=== PATIENT | female | born 1980 | race Caucasian/White ===

== ENCOUNTER 2021-10-23 21:47 | Emergency (ER) | payer MEDICAID, SELFPAY ==
[2021-10-23 22:22] LABS: #Eosinphils 0.4 thou/uL (0.0-0.7); #Lymphocytes 1.9 thou/uL (1.20-3.40); #Monocytes 0.7 thou/uL (0.11-0.59); #Neutrophils 6.2 thou/uL (1.40-6.50); %Basophils 0.4 % (0.0-1.0); %Eosinophils 4.4 % (0.0-10.0); %Lymphocytes 20.6 % (21.0-51.0); %Monocytes 7.6 % (0.0-10.0); Hemoglobin 12.3 g/dL (12.0-16.0); Mean Corpuscular HGB CONC 33.3 g/dL (32.0-36.0); Mean Corpuscular Hemoglobin 31.9 pg (27.0-31.0); Mean Corpuscular Volume 95.8 fL (78.0-98.0); Mean Platelet Volume 8.6 fL (7.4-10.4); Platelet Count 169 thou/uL (130-400); RBC Distribution Width 13.6 % (11.5-14.5); Red Blood Cell (RBC) Count 3.87 mill/uL (4.20-5.40); White Blood Cell (WBC) Count 9.2 thou/uL (4.8-10.8)
[2021-10-23 22:27] LABS: Bilirubin Negative (Negative); Blood, Urine Negative (Negative); Clarity Turbid (Clear); Glucose, Urine (Dipstick) Normal (Negative); Ketone, Urine Negative (Negative); Leukocyte Negative Leu/uL (Negative); Nitrite Negative (Negative); Protein, Urine (Dipstick) Negative (Neg-Trace); Specific Gravity, Urine 1.023 (1.002-1.036); Urobilinogen Normal mg/dL (Less than 2); pH, Urine 6.5 (5.0-9.0)
[2021-10-23 22:31] LABS: Pregnancy Test - Urine (BHCG) Negative (Negative); Specific Gravity 1.023 (1.002-1.036)
[2021-10-23 22:32] LABS: Pregu Control Background? CLEAR/WHITE (CLR/WHITE); Pregu Control Bar Appear? YES (CONTROL BAR)
[2021-10-23 22:42] LABS: ALT (SGPT) 10 U/L (8-55); AST (SGOT) 16 U/L (5-34); Alkaline Phosphatase 82 U/L (40-110); Anion Gap 13 mmol/L (10-20); BUN (Urea Nitrogen) 12 mg/dL (7.0-18.7); Bilirubin, Total Less than 0.2 mg/dL (0.2-1.2); Calc. Creatinine Clearance 0 mL/min (70-130); Calcium 8.4 mg/dL (7.8-10.44); Carbon Dioxide 19 mmol/L (22-29); Chloride 110 mmol/L (98-107); Globulin 2.6 g/dL (2.4-3.5); Glucose 89 mg/dL (70-105); Lipase 62 U/L (8-78); Potassium 3.5 mmol/L (3.5-5.1); Protein, Total 6.6 g/dL (6.0-8.3); Sodium 138 mmol/L (136-145)
[2021-10-24] MEDS ORDERED: Ketorolac Tromethamine 30 MG/ML VIAL ONE (00:08)
[2021-10-24] MEDS ORDERED: Cyclobenzaprine 10 MG TAB ONE (02:28)
[2021-10-24] MEDS ORDERED: Acetaminophen 500 MG TAB ONE (02:28)
== END 2021-10-24 03:18 | disposition home or self-care (01) ==
LOC: ERS 21:47
DX: R10.11 Right upper quadrant pain (principal); F17.210 Nicotine dependence, cigarettes, uncomplicated
CPT/HCPCS: 36415; 76705; 80053; 81003; 81025; 83690; 85025; 96372; J1885

== ENCOUNTER 2022-02-16 08:02 | Inpatient (IN) | payer SELFPAY ==
[2022-02-16 08:37] LABS: BHCG - Serum Negative (NEGATIVE); Pregs Control Background? CLEAR/WHITE (CLR/WHITE); Pregs Control Bar Appear? YES (CONTROL BAR)
[2022-02-16 08:50] LABS: ALT (SGPT) 7 U/L (8-55); AST (SGOT) 21 U/L (5-34); Albumin 3.8 g/dL (3.5-5.0); Alkaline Phosphatase 92 U/L (40-110); Anion Gap 16 mmol/L (10-20); BUN (Urea Nitrogen) 7 mg/dL (7.0-18.7); Bilirubin, Total 0.4 mg/dL (0.2-1.2); Calc. Creatinine Clearance 0 mL/min (70-130); Calcium 8.7 mg/dL (7.8-10.44); Carbon Dioxide 15 mmol/L (22-29); Chloride 108 mmol/L (98-107); Estimated GFR 99; Globulin 3.1 g/dL (2.4-3.5); Glucose 146 mg/dL (70-105); Lipase 24 U/L (8-78); Potassium 4.1 mmol/L (3.5-5.1); Protein, Total 6.9 g/dL (6.0-8.3); Sodium 135 mmol/L (136-145)
[2022-02-16 08:57] LABS: Hemoglobin 12.3 g/dL (12.0-16.0); Mean Corpuscular HGB CONC 32.2 g/dL (32.0-36.0); Mean Corpuscular Hemoglobin 31.3 pg (27.0-31.0); Mean Corpuscular Volume 97.1 fL (78.0-98.0); Platelet Count 184 thou/uL (130-400); Red Blood Cell (RBC) Count 3.95 mill/uL (4.20-5.40); White Blood Cell (WBC) Count 11.7 thou/uL (4.8-10.8)
[2022-02-16 09:11] LABS: CKMB 0.7 ng/mL (0-6.6)
[2022-02-16] MEDS ORDERED: Ondansetron PF 4 MG/2 ML Vial ONE ×2 (09:11→14:04)
[2022-02-16] MEDS ORDERED: Ketorolac Tromethamine 30 MG/ML VIAL ONE (09:11)
[2022-02-16] MEDS ORDERED: Morphine 2 MG/ML VIAL ONE (09:34)
[2022-02-16] MEDS ORDERED: Morphine 4 MG/ML VIAL ONE ×2 (09:34→14:04)
[2022-02-16] MEDS ORDERED: Clopidogrel Bisulfate 75 MG TAB ONE (09:34)
[2022-02-16] MEDS ORDERED: Clopidogrel Bisulfate 300 MG TAB ONE (09:38)
[2022-02-16 09:41] LABS: Band 1 % (5-11); Lymphocytes 8 % (21-51); MDiff Complete? YES; Monocytes 9 % (0-10); Neutrophil 82 % (42-75); Platelet Morphology Comment Appears Adequate; Polychromasia SLIGHT = 2-3 cells (100X) (0-2/hpf)
[2022-02-16] MEDS ORDERED: cefTRIAXone\\ROCEPHIN 2 GM VIAL ONE (10:33)
[2022-02-16] MEDS ORDERED: Azithromycin 500 MG VIAL ONE (10:33)
[2022-02-16 10:48] LABS: Amphetamine Not Detected (NotDetected); Barbiturates Screen Not Detected (NotDetected); Benzodiazepine Screen Not Detected (NotDetected); Bilirubin Negative (Negative); Blood, Urine 3+ (Negative); Clarity Turbid (Clear); Cocaine Metabolite Screen Not Detected (NotDetected); Glucose, Urine (Dipstick) Normal (Negative); Ketone, Urine Negative (Negative); Leukocyte Negative Leu/uL (Negative); Methadone Not Detected (NotDetected); Methamphetamine Not Detected (NotDetected); Nitrite Negative (Negative); Opiate Screen Not Detected (NotDetected); Oxycodone Screen Not Detected (NotDetected); Phencyclidine (PCP) Not Detected (NotDetected); Protein, Urine (Dipstick) Negative (Neg-Trace); Specific Gravity, Urine 1.012 (1.002-1.036); Squamous Epithelial 0-3 HPF (0-3); THC/Cannabinoid Screen Not Detected (NotDetected); Tricyclic Screen Not Detected (NotDetected); Urobilinogen Normal mg/dL (Less than 2)
[2022-02-16 10:51] LABS: WBC/HPF 0-3 HPF (0-3)
[2022-02-16 11:19] LABS: Bacteria/HPF 4+ HPF (None Seen)
[2022-02-16] MEDS ORDERED: Iopamidol-370 76% 500 ML 1 ML ONE (11:40)
[2022-02-16] MEDS ORDERED: guaiFENesin 200 MG TAB PO PRN (12:31)
[2022-02-16] MEDS ORDERED: Senokot S 8.6-50 MG TAB PO PRN (12:33)
[2022-02-16] MEDS ORDERED: Ondansetron ODT 4 MG TAB PO PRN (12:33)
[2022-02-16] MEDS ORDERED: Ondansetron PF 4 MG/2 ML Vial IVP PRN (12:33)
[2022-02-16 12:57] LABS: Troponin I 0.026 ng/mL (< 0.028)
[2022-02-16 13:09] LABS: SARS-CoV-2 NAA Rapid Test Not Detected (NotDetected)
[2022-02-16] MEDS ORDERED: Acetaminophen 325 MG TAB ONE (14:04)
[2022-02-16] MEDS: Acetaminophen 325 MG TAB PO PRN ×3 (14:16→23:48)
[2022-02-16] MEDS: Morphine 2 MG/ML VIAL SLOW IVP PRN ×3 (14:17→23:48)
[2022-02-16 15:42] LABS: Troponin I 0.022 ng/mL (< 0.028)
[2022-02-16 15:58] VITALS: BMI 23.3
[2022-02-16] MEDS: Sodium Chloride 0.9% 1,000 ML IV SCH ×2 (17:01→20:08)
[2022-02-16] MEDS ORDERED: Ketorolac Tromethamine 30 MG/ML VIAL IVP SCH (17:15)
[2022-02-16] MEDS: Enoxaparin Sodium 40 MG/0.4 ML SYRINGE SC SCH (20:08)
[2022-02-16] MEDS: Famotidine 20 MG TAB PO SCH (20:08)
[2022-02-16 20:55] LABS: Legionella Urinary Ag Negative (Negative); Strep pneumo Urine Ag NEGATIVE (NEGATIVE)
[2022-02-17 06:51] LABS: #Eosinphils 0.2 thou/uL (0.0-0.7); #Lymphocytes 1.2 thou/uL (1.20-3.40); #Neutrophils 5.2 thou/uL (1.40-6.50); %Eosinophils 2.2 % (0.0-10.0); %Lymphocytes 15.5 % (21.0-51.0); %Monocytes 12.8 % (0.0-10.0); %Neutrophils 69.5 % (42.0-75.0); Hemoglobin 10.5 g/dL (12.0-16.0); Mean Corpuscular HGB CONC 32.5 g/dL (32.0-36.0); Mean Corpuscular Hemoglobin 31.6 pg (27.0-31.0); Mean Corpuscular Volume 97.2 fL (78.0-98.0); Mean Platelet Volume 9.1 fL (7.4-10.4); Platelet Count 141 thou/uL (130-400); RBC Distribution Width 13.1 % (11.5-14.5); Red Blood Cell (RBC) Count 3.31 mill/uL (4.20-5.40); White Blood Cell (WBC) Count 7.5 thou/uL (4.8-10.8)
[2022-02-17 06:56] LABS: Anion Gap 12 mmol/L (10-20); BUN (Urea Nitrogen) 6 mg/dL (7.0-18.7); Calc. Creatinine Clearance 110 mL/min (70-130); Carbon Dioxide 14 mmol/L (22-29); Chloride 116 mmol/L (98-107); Estimated GFR 114; Glucose 85 mg/dL (70-105); Potassium 3.5 mmol/L (3.5-5.1); Sodium 138 mmol/L (136-145)
[2022-02-17] MEDS ORDERED: cefTRIAXone\\ROCEPHIN 1 GM in Sodium Chloride 0.9% 100 ML IVPB SCH (09:00)
[2022-02-17] MEDS: Famotidine 20 MG TAB PO SCH (09:00)
[2022-02-17] MEDS: Morphine 2 MG/ML VIAL SLOW IVP PRN (09:02)
[2022-02-17] MEDS: Sodium Chloride 0.9% 1,000 ML IV SCH (09:07)
[2022-02-17] MEDS ORDERED: Azithromycin 500 MG in Sodium Chloride 0.9% 250 ML 250 ML IVPB SCH (10:00)
[2022-02-17] MEDS: Dicyclomine 10 MG CAP PO SCH ×3 (12:34→21:34)
[2022-02-17] MEDS: Ketorolac Tromethamine 30 MG/ML VIAL IVP PRN ×2 (12:35→21:36)
[2022-02-17] MEDS: Albuterol Sulfate 2.5 mg/3 ml Neb NEB SCH ×3 (14:52→23:49)
[2022-02-17] MEDS: carBAMazepine SR 300 mg Capsule PO SCH ×2 (17:06→21:35)
[2022-02-17] MEDS: Enoxaparin Sodium 40 MG/0.4 ML SYRINGE SC SCH (21:35)
[2022-02-17] MEDS: Zonisamide 100 MG CAP PO SCH (21:35)
[2022-02-17] MEDS: Cefdinir 300 MG CAP PO SCH (21:35)
[2022-02-17] MEDS: Acetaminophen 325 MG TAB PO PRN (21:36)
[2022-02-18 05:38] LABS: #Eosinphils 0.1 thou/uL (0.0-0.7); #Lymphocytes 1.4 thou/uL (1.20-3.40); #Monocytes 0.7 thou/uL (0.11-0.59); #Neutrophils 3.5 thou/uL (1.40-6.50); %Basophils 0.4 % (0.0-1.0); %Eosinophils 2.2 % (0.0-10.0); %Lymphocytes 23.9 % (21.0-51.0); %Monocytes 12.6 % (0.0-10.0); %Neutrophils 60.9 % (42.0-75.0); Hemoglobin 10.3 g/dL (12.0-16.0); Mean Corpuscular HGB CONC 32.7 g/dL (32.0-36.0); Mean Corpuscular Volume 97.7 fL (78.0-98.0); Mean Platelet Volume 8.5 fL (7.4-10.4); Platelet Count 150 thou/uL (130-400); Red Blood Cell (RBC) Count 3.24 mill/uL (4.20-5.40); White Blood Cell (WBC) Count 5.7 thou/uL (4.8-10.8)
[2022-02-18 06:16] LABS: Anion Gap 14 mmol/L (10-20); BUN (Urea Nitrogen) 5 mg/dL (7.0-18.7); Calc. Creatinine Clearance 111 mL/min (70-130); Calcium 8.4 mg/dL (7.8-10.44); Carbon Dioxide 13 mmol/L (22-29); Chloride 115 mmol/L (98-107); Estimated GFR 114; Glucose 77 mg/dL (70-105); Potassium 3.3 mmol/L (3.5-5.1); Sodium 139 mmol/L (136-145)
[2022-02-18] MEDS: Albuterol Sulfate 2.5 mg/3 ml Neb NEB SCH ×3 (07:00→17:52)
[2022-02-18] MEDS: Dicyclomine 10 MG CAP PO SCH ×4 (08:20→20:31)
[2022-02-18] MEDS: Cefdinir 300 MG CAP PO SCH (08:20)
[2022-02-18] MEDS: Potassium Chloride 20 MEQ TAB PO SCH ×2 (08:20→11:37)
[2022-02-18] MEDS: Zonisamide 100 MG CAP PO SCH ×2 (08:23→20:36)
[2022-02-18] MEDS: carBAMazepine SR 300 mg Capsule PO SCH ×3 (08:25→20:35)
[2022-02-18] MEDS: Acetaminophen 325 MG TAB PO PRN ×2 (08:33→20:31)
[2022-02-18] MEDS: Ketorolac Tromethamine 30 MG/ML VIAL IVP PRN ×3 (10:22→23:31)
[2022-02-18] MEDS ORDERED: Simethicone Chewable 80 MG TAB PO SCH (20:06)
[2022-02-18] MEDS ORDERED: Ketorolac Tromethamine 30 MG/ML VIAL IVP ONE (20:06)
[2022-02-18] MEDS ORDERED: Methocarbamol 500 MG TAB PO SCH (20:15)
[2022-02-18] MEDS: Enoxaparin Sodium 40 MG/0.4 ML SYRINGE SC SCH (20:32)
[2022-02-19] MEDS: Albuterol Sulfate 2.5 mg/3 ml Neb NEB SCH ×2 (00:01→07:20)
[2022-02-19] MEDS: Ketorolac Tromethamine 30 MG/ML VIAL IVP PRN ×2 (05:35→11:28)
[2022-02-19] MEDS: Acetaminophen 325 MG TAB PO PRN ×2 (05:35→11:29)
[2022-02-19 07:44] LABS: Anion Gap 16 mmol/L (10-20); BUN (Urea Nitrogen) 8 mg/dL (7.0-18.7); Calc. Creatinine Clearance 101 mL/min (70-130); Calcium 9.1 mg/dL (7.8-10.44); Carbon Dioxide 14 mmol/L (22-29); Chloride 114 mmol/L (98-107); Estimated GFR 107; Glucose 92 mg/dL (70-105); Sodium 140 mmol/L (136-145)
[2022-02-19 08:16] VITALS: BP 119/83; TEMP 98.1
[2022-02-19] MEDS: Zonisamide 100 MG CAP PO SCH (08:52)
[2022-02-19] MEDS: carBAMazepine SR 300 mg Capsule PO SCH (08:53)
[2022-02-19] MEDS: Dicyclomine 10 MG CAP PO SCH (08:53)
[2022-02-20 19:43] LABS: Campy jejuni + coli by PCR Negative (Negative); STEC Shiga Toxin 1+2 Negative (Negative); Salmonella spp. by PCR Negative (Negative); Shigella spp + EIEC by PCR Negative (Negative)
== END 2022-02-19 12:04 | disposition home or self-care (01) | DRG 194 ==
LOC: ERS 08:02 → ERHOLD 12:12 → T4-A 14:49 → OBSVTOIN 02-17 16:53
PROVIDERS: ADMIT Internal Medicine; ATTEND Internal Medicine
DX: J18.9 Pneumonia, unspecified organism (principal); E87.2 Acidosis; N39.0 Urinary tract infection, site not specified; K52.9 Noninfective gastroenteritis and colitis, unspecified; G40.909 Epilepsy, unspecified, not intractable, without status epilepticus; Z20.822 Contact with and (suspected) exposure to COVID-19; M85.88 Other specified disorders of bone density and structure, other site; R77.8 Other specified abnormalities of plasma proteins; R73.9 Hyperglycemia, unspecified; Z88.6 Allergy status to analgesic agent; Z88.8 Allergy status to other drugs, medicaments and biological substances; Z79.899 Other long term (current) drug therapy; Z98.890 Other specified postprocedural states; Z82.49 Family history of ischemic heart disease and other diseases of the circulatory system
CPT/HCPCS: 36415; 71045; 71275; 74177; 80048; 80053; 80306; 81003; 81015; 82553; 83605; 83690; 84484; 84703; 85025; 87040; 87077; 87086; 87186; 87324; 87449; 87505; 87899; 93005; 94640; 94760; 96365; 96366; 96368; 96372; 96375; 96376; G0378; J0456; J0696; J1650; J1885; J2270; J2405; J3490; J7050; J7611; Q9967; U0002